=== PATIENT | male | born 1955 | race Caucasian/White ===

== ENCOUNTER 2022-01-08 12:01 | Emergency (ER) | payer MEDICAID ==
[~2022-01-08] VITALS: Ht 170.2 cm; Wt 86.2 kg
[~2022-01-08 12:01] MED LIST: ALPR1TAB2; ASPI-1406; HYDR-4005; LEVO750T46 MT; LISI40TA13; NEOM10SO12 LEFT EAR; SOMA; SULF1TAB48 MT
[2022-01-08 12:14] VITALS: BP 149/85
[2022-01-08] MEDS ORDERED: IPRATROPIUM/ALBUTEROL 0.5-3(2.5)MG/3ML NEB HHN ONE (13:00)
== END 2022-01-08 15:54 | disposition home or self-care (01) ==
LOC: ER 12:14
DX: Z20.822 Contact with and (suspected) exposure to COVID-19 (principal); E11.9 Type 2 diabetes mellitus without complications; I10 Essential (primary) hypertension
CPT/HCPCS: 71045; 87426; 94640; 99284; Z7610

== ENCOUNTER 2022-02-28 16:36 | Emergency (ER) | payer MEDICAID ==
[~2022-02-28] VITALS: Ht 172.7 cm; Wt 86.0 kg
[~2022-02-28 16:36] MED LIST changes: +CLON0.2T PO; +FURO-151 MT; +GLIP5TAB12 MT; -LEVO750T46 MT; +LIP40 PO; +LISI40TA13 MT; +LOSA100T3 PO; +METF-873 PO; +METO-539 PO; -NEOM10SO12 LEFT EAR; -SULF1TAB48 MT
[2022-02-28 16:41] VITALS: BP 150/90
== END 2022-02-28 21:30 | disposition left against medical advice (07) ==
LOC: ER 16:36
DX: Z53.21 Procedure and treatment not carried out due to patient leaving prior to being seen by health care provider (principal)
CPT/HCPCS: 93005

== ENCOUNTER 2022-03-27 19:13 | Inpatient (IN) | payer MEDICAID ==
[~2022-03-27] VITALS: Ht 170.2 cm; Wt 78.3 kg
[2022-03-27 20:17] LABS: HEMATOCRIT. 31.6 % (42.0-52.0); HEMOGLOBIN. 10.2 g/dL (14.0-18.0); MEAN CORPUSCULAR HEMOGLOBIN 26.5 pg (28.0-32.0); MEAN CORPUSCULAR VOLUME 82.1 fL (80.0-94.0); MEAN PLATELET VOLUME 7.8 fl (7.4-10.4); PLATELET 225 x1000/uL (130-400); RED BLOOD CELL COUNT 3.85 mill/uL (4.7-6.1); RED CELL DISTRIBUTION WIDTH 16.5 % (11.6-14.6)
[2022-03-27 20:29] LABS: CHLORIDE 100 mEq/L (98-107)
[2022-03-27 20:35] LABS: ETHANOL BLOOD < 10 mg/dL
[2022-03-27 21:04] LABS: PLATELET ESTIMATE NORMAL
[2022-03-27] MEDS ORDERED: ACETAMINOPHEN 325MG TABLET PO STA (22:33)
[2022-03-27] MEDS ORDERED: SODIUM CHLORIDE 0.9% 1,000 ML IV ONE (23:45)
[2022-03-28 01:59] LABS: CLARITY URINE CLOUDY (CLEAR); COLOR URINE YELLOW (YELLOW); KETONES URINE NEGATIVE (NEGATIVE); LEUKOCYTE ESTERASE URINE 3+ (NEGATIVE); NITRITE URINE POSITIVE (NEGATIVE); OCCULT BLOOD URINE 3+ (NEGATIVE); PH URINE 5.5 (4.5-8.0); PROTEIN URINE 2+ (NEGATIVE); SPECIFIC GRAVITY URINE 1.011 (1.005-1.030)
[2022-03-28 02:09] LABS: *AMPHETAMINES SCREEN URINE PRESUMTIVE POSITIVE (NEGATIVE); *BARBITURATES SCREEN URINE NEGATIVE (NEGATIVE); *BENZODIAZEPINES SCREEN URINE NEGATIVE (NEGATIVE); *COCAINE SCREEN URINE NEGATIVE (NEGATIVE); CANNABINOID URINE SCREEN NEGATIVE (NEGATIVE); METHADONE URINE SCREEN NEGATIVE (NEGATIVE); OPIATES URINE SCREEN NEGATIVE (NEGATIVE); PHENCYCLIDINE URINE SCREEN NEGATIVE (NEGATIVE)
[2022-03-28] MEDS ORDERED: CEFTRIAXONE 1 G PREMIX 50 ML IV NR (02:45)
[2022-03-28 09:28] VITALS: BP 129/84
[2022-03-28] MEDS ORDERED: ONDANSETRON HCL 4MG/2ML INJ IV PRN (10:00)
[2022-03-28] MEDS ORDERED: CLONIDINE 0.1MG TABLET PO PRN (10:00)
[2022-03-28] MEDS ORDERED: CEFTRIAXONE 1 G PREMIX 50 ML IV SCH (10:00)
[2022-03-28] MEDS ORDERED: DIPHENHYDRAMINE 50MG/ML VIAL IV PRN (10:00)
[2022-03-28] MEDS ORDERED: IPRATROPIUM/ALBUTEROL 0.5-3(2.5)MG/3ML NEB HHN PRN (10:00)
[2022-03-28] MEDS: ACETAMINOPHEN 325MG TABLET PO PRN ×2 (10:08→16:03)
[2022-03-28 12:04] VITALS: BP 134/80
[2022-03-28] MEDS ORDERED: NALOXONE HCL 0.4MG/ML VIAL IV PRN (14:00)
[2022-03-28] MEDS: MORPHINE SULFATE 2 MG/ML CPJ (NOT FOR IM USE) IV PRN (14:37)
[2022-03-28 15:47] VITALS: BP 121/96
[2022-03-28] MEDS ORDERED: VANCOMYCIN 1,750 MG in DEXT 5% WATER 250 ML IV NR (18:00)
[2022-03-28] MEDS: VANCOMYCIN 750 MG in DEXT 5% WATER 250 ML IV SCH (19:57)
[2022-03-28 20:00] VITALS: BP 140/65
[2022-03-28] MEDS: CARVEDILOL 3.125 MG TABLET PO SCH (20:01)
[2022-03-29] VITALS: BP 125/72
[2022-03-29 04:00] VITALS: BP 109/50
[2022-03-29] MEDS: CEFTRIAXONE 1,000 MG in DEXTROSE 5% WATER 50 ML IV SCH (05:46)
[2022-03-29] MEDS: VANCOMYCIN 750 MG in DEXT 5% WATER 250 ML IV SCH (05:47)
[2022-03-29 06:07] LABS: HEMATOCRIT. 30.5 % (42.0-52.0); MEAN CORPUSCULAR HEMOGLOBIN 26.7 pg (28.0-32.0); MEAN CORPUSCULAR VOLUME 81.3 fL (80.0-94.0); MEAN PLATELET VOLUME 8.3 fl (7.4-10.4); PLATELET 192 x1000/uL (130-400); RED BLOOD CELL COUNT 3.75 mill/uL (4.7-6.1); RED CELL DISTRIBUTION WIDTH 16.8 % (11.6-14.6)
[2022-03-29 07:08] LABS: CHLORIDE 96 mEq/L (98-107)
[2022-03-29 08:00] VITALS: BP 148/70
[2022-03-29] MEDS: CARVEDILOL 3.125 MG TABLET PO SCH ×2 (08:18→21:04)
[2022-03-29] MEDS: FUROSEMIDE 40MG/4ML VIAL IV SCH (08:18)
[2022-03-29 11:37] LABS: PLATELET ESTIMATE NORMAL
[2022-03-29 12:00] VITALS: BP 126/74
[2022-03-29] MEDS: ACETAMINOPHEN 325MG TABLET PO PRN (15:25)
[2022-03-29 16:00] VITALS: BP 111/68
[2022-03-29 20:00] VITALS: BP 110/72
[2022-03-30] MEDS: MORPHINE SULFATE 2 MG/ML CPJ (NOT FOR IM USE) IV PRN (00:42)
[2022-03-30] MEDS ORDERED: VANCOMYCIN 1G PREMIX 200 ML IV SCH (01:00)
[2022-03-30 04:08] VITALS: BP 108/68
[2022-03-30] MEDS: CEFTRIAXONE 1,000 MG in DEXTROSE 5% WATER 50 ML IV SCH (05:44)
[2022-03-30 08:00] VITALS: BP 125/71
[2022-03-30] MEDS: CARVEDILOL 3.125 MG TABLET PO SCH ×2 (08:32→21:15)
[2022-03-30 08:51] LABS: HEMATOCRIT. 30.7 % (42.0-52.0); MEAN CORPUSCULAR HEMOGLOBIN 26.8 pg (28.0-32.0); MEAN CORPUSCULAR VOLUME 82.1 fL (80.0-94.0); MEAN PLATELET VOLUME 8.4 fl (7.4-10.4); PLATELET 178 x1000/uL (130-400); RED BLOOD CELL COUNT 3.75 mill/uL (4.7-6.1); RED CELL DISTRIBUTION WIDTH 16.8 % (11.6-14.6)
[2022-03-30 11:43] LABS: PLATELET ESTIMATE NORMAL
[2022-03-30 12:00] VITALS: BP 104/60
[2022-03-30 16:00] VITALS: BP 99/40
[2022-03-30] MEDS: ACETAMINOPHEN 325MG TABLET PO PRN (17:52)
[2022-03-30 20:00] VITALS: BP_SYST 116; BP_SYST 154; BP_DIAS 71; BP_DIAS 77
[2022-03-31] VITALS: BP 117/79
[2022-03-31 04:00] VITALS: BP 118/78
[2022-03-31] MEDS ORDERED: DEXTROSE 50% WATER 50ML SYRINGE IV PRN (04:45)
[2022-03-31] MEDS: CEFTRIAXONE 1,000 MG in DEXTROSE 5% WATER 50 ML IV SCH (04:57)
[2022-03-31 07:33] LABS: HEMATOCRIT. 30.8 % (42.0-52.0); HEMOGLOBIN. 10.1 g/dL (14.0-18.0); MEAN CORPUSCULAR HEMOGLOBIN 26.8 pg (28.0-32.0); MEAN CORPUSCULAR VOLUME 81.7 fL (80.0-94.0); MEAN PLATELET VOLUME 8.6 fl (7.4-10.4); PLATELET 194 x1000/uL (130-400); RED BLOOD CELL COUNT 3.77 mill/uL (4.7-6.1); RED CELL DISTRIBUTION WIDTH 16.6 % (11.6-14.6)
[2022-03-31] MEDS: BLOOD SUGAR DIAGNOSTIC STRIP TEST SCH ×4 (07:40→21:01)
[2022-03-31] MEDS: FUROSEMIDE 40MG/4ML VIAL IV SCH (08:41)
[2022-03-31] MEDS: CARVEDILOL 3.125 MG TABLET PO SCH (08:42)
[2022-03-31] MEDS: INSULIN LISPRO 100 UNITS/ML SUBCUT SCH ×4 (08:43→21:05)
[2022-03-31 12:00] VITALS: BP 120/76
[2022-03-31 16:00] VITALS: BP 120/86
[2022-03-31] MEDS: CYANOCOBALAMIN 1000MCG/ML VIAL IM SCH (18:40)
[2022-03-31 20:00] VITALS: BP 129/75
[2022-03-31] MEDS: CARVEDILOL 6.25 MG TABLET PO SCH (21:06)
[2022-04-01] VITALS: BP 124/71
[2022-04-01 04:00] VITALS: BP 121/71
[2022-04-01] MEDS: CEFTRIAXONE 1,000 MG in DEXTROSE 5% WATER 50 ML IV SCH (06:05)
[2022-04-01] MEDS: BLOOD SUGAR DIAGNOSTIC STRIP TEST SCH ×4 (06:05→20:35)
[2022-04-01 06:34] LABS: BASOPHILS % 0.4 % (0.0-2.0); HEMATOCRIT. 30.2 % (42.0-52.0); HEMOGLOBIN. 9.8 g/dL (14.0-18.0); LYMPHOCYTES % 7.9 % (20.0-50.0); MEAN CORPUSCULAR HEMOGLOBIN 26.6 pg (28.0-32.0); MEAN CORPUSCULAR VOLUME 81.4 fL (80.0-94.0); MEAN PLATELET VOLUME 8.4 fl (7.4-10.4); MONOCYTES % 10.5 % (2.0-8.0); NEUTROPHILS % 80.2 % (40.0-76.0); PLATELET 239 x1000/uL (130-400); RED CELL DISTRIBUTION WIDTH 16.6 % (11.6-14.6)
[2022-04-01 08:00] VITALS: BP 122/78
[2022-04-01] MEDS: CYANOCOBALAMIN 1000MCG/ML VIAL IM SCH (08:31)
[2022-04-01] MEDS: FUROSEMIDE 40MG/4ML VIAL IV SCH (08:31)
[2022-04-01] MEDS: CARVEDILOL 6.25 MG TABLET PO SCH ×2 (08:31→20:34)
[2022-04-01] MEDS: INSULIN LISPRO 100 UNITS/ML SUBCUT SCH ×4 (08:32→20:35)
[2022-04-01 11:57] LABS: PLATELET ESTIMATE NORMAL
[2022-04-01 12:00] VITALS: BP 128/85
[2022-04-01 16:00] VITALS: BP 135/90
[2022-04-01 20:00] VITALS: BP 118/74
[2022-04-02] VITALS: BP 128/81
[2022-04-02 04:00] VITALS: BP 145/90
[2022-04-02] MEDS: CEFTRIAXONE 1,000 MG in DEXTROSE 5% WATER 50 ML IV SCH (06:01)
[2022-04-02] MEDS: BLOOD SUGAR DIAGNOSTIC STRIP TEST SCH ×4 (06:01→20:02)
[2022-04-02] MEDS: INSULIN LISPRO 100 UNITS/ML SUBCUT SCH ×4 (07:45→20:25)
[2022-04-02 08:00] VITALS: BP 137/91
[2022-04-02] MEDS: FUROSEMIDE 40MG/4ML VIAL IV SCH (09:18)
[2022-04-02] MEDS: CYANOCOBALAMIN 1000MCG/ML VIAL IM SCH (09:19)
[2022-04-02] MEDS: CARVEDILOL 6.25 MG TABLET PO SCH (09:20)
[2022-04-02 11:56] VITALS: BP 128/90
[2022-04-02] MEDS: MORPHINE SULFATE 2 MG/ML CPJ (NOT FOR IM USE) IV PRN (13:18)
[2022-04-02 16:00] VITALS: BP 124/75
[2022-04-02 20:00] VITALS: BP 157/82
[2022-04-02] MEDS: CARVEDILOL 12.5MG TABLET PO SCH (20:24)
[2022-04-03] VITALS: BP 128/82
[2022-04-03 04:00] VITALS: BP 136/88
[2022-04-03] MEDS: CEFTRIAXONE 1,000 MG in DEXTROSE 5% WATER 50 ML IV SCH (05:46)
[2022-04-03] MEDS: BLOOD SUGAR DIAGNOSTIC STRIP TEST SCH ×4 (06:42→21:38)
[2022-04-03 08:00] VITALS: BP 124/83
[2022-04-03] MEDS: INSULIN LISPRO 100 UNITS/ML SUBCUT SCH ×4 (08:28→21:42)
[2022-04-03] MEDS: CYANOCOBALAMIN 1000MCG/ML VIAL IM SCH (09:25)
[2022-04-03] MEDS: FUROSEMIDE 40MG/4ML VIAL IV SCH (09:25)
[2022-04-03] MEDS: CARVEDILOL 12.5MG TABLET PO SCH ×2 (09:26→21:38)
[2022-04-03] MEDS: LACTULOSE 20G/30ML UDC PO SCH ×3 (09:27→17:00)
[2022-04-03] MEDS ORDERED: NALOXONE HCL 0.4MG/ML VIAL IV PRN (09:30)
[2022-04-03 12:00] VITALS: BP 126/77
[2022-04-03] MEDS: GABAPENTIN 100MG CAPSULE PO SCH ×2 (14:34→21:37)
[2022-04-03 16:00] VITALS: BP 129/80
[2022-04-03 16:47] LABS: PHOSPHORUS 3.9 mg/dL (2.5-4.9)
[2022-04-03 20:00] VITALS: BP 114/73
[2022-04-04] VITALS: BP_SYST 110; BP_SYST 132; BP_DIAS 71; BP_DIAS 82
[2022-04-04 04:00] VITALS: BP 110/71
[2022-04-04 04:10] LABS: 25-HYDROXY VITAMIN D3 22 ng/mL (.)
[2022-04-04] MEDS: CEFTRIAXONE 1,000 MG in DEXTROSE 5% WATER 50 ML IV SCH (05:53)
[2022-04-04] MEDS: GABAPENTIN 100MG CAPSULE PO SCH ×3 (05:53→21:21)
[2022-04-04] MEDS: BLOOD SUGAR DIAGNOSTIC STRIP TEST SCH ×4 (05:54→21:21)
[2022-04-04] MEDS: HYDROCODONE/ACETAMINOPHEN 5/325MG TABLET PO PRN ×2 (05:54→13:32)
[2022-04-04 08:00] VITALS: BP 121/77
[2022-04-04] MEDS: FUROSEMIDE 40MG TABLET PO SCH (08:58)
[2022-04-04] MEDS: CYANOCOBALAMIN 1000MCG/ML VIAL IM SCH (08:58)
[2022-04-04] MEDS: CARVEDILOL 12.5MG TABLET PO SCH ×2 (08:58→21:21)
[2022-04-04] MEDS: INSULIN LISPRO 100 UNITS/ML SUBCUT SCH ×4 (08:59→21:22)
[2022-04-04] MEDS ORDERED: ERGOCALCIFEROL 50000UNITS CAPSULE PO SCH (11:00)
[2022-04-04 12:00] VITALS: BP 128/81
[2022-04-04 16:00] VITALS: BP 100/51
[2022-04-04 20:00] VITALS: BP 134/82
[2022-04-05] VITALS: BP 114/67
[2022-04-05 04:00] VITALS: BP 118/71
[2022-04-05] MEDS: GABAPENTIN 100MG CAPSULE PO SCH ×2 (05:57→12:57)
[2022-04-05] MEDS: CEFTRIAXONE 1,000 MG in DEXTROSE 5% WATER 50 ML IV SCH (05:57)
[2022-04-05] MEDS: HYDROCODONE/ACETAMINOPHEN 5/325MG TABLET PO PRN ×2 (06:07→17:34)
[2022-04-05] MEDS: BLOOD SUGAR DIAGNOSTIC STRIP TEST SCH ×4 (06:07→20:53)
[2022-04-05] MEDS: INSULIN LISPRO 100 UNITS/ML SUBCUT SCH ×4 (06:07→20:58)
[2022-04-05 08:00] VITALS: BP 134/83
[2022-04-05] MEDS: CYANOCOBALAMIN 1000MCG/ML VIAL IM SCH (08:37)
[2022-04-05] MEDS: FUROSEMIDE 40MG TABLET PO SCH (08:37)
[2022-04-05] MEDS: CARVEDILOL 12.5MG TABLET PO SCH ×2 (08:38→20:59)
[2022-04-05 12:00] VITALS: BP 128/75
[2022-04-05] MEDS ORDERED: GABAPENTIN 100MG CAPSULE PO NR (14:00)
[2022-04-05 16:00] VITALS: BP 120/76
[2022-04-05 20:00] VITALS: BP 113/64
[2022-04-05] MEDS: GABAPENTIN 300MG CAPSULE PO SCH (21:07)
[2022-04-06] VITALS: BP_SYST 113; BP_DIAS 68; BP_DIAS 71
[2022-04-06 04:00] VITALS: BP 128/76
[2022-04-06] MEDS: CEFTRIAXONE 1,000 MG in DEXTROSE 5% WATER 50 ML IV SCH (05:02)
[2022-04-06] MEDS: GABAPENTIN 300MG CAPSULE PO SCH ×3 (05:02→21:05)
[2022-04-06] MEDS: HYDROCODONE/ACETAMINOPHEN 5/325MG TABLET PO PRN ×2 (05:30→12:57)
[2022-04-06] MEDS: BLOOD SUGAR DIAGNOSTIC STRIP TEST SCH ×4 (06:40→20:59)
[2022-04-06] MEDS: INSULIN LISPRO 100 UNITS/ML SUBCUT SCH ×4 (07:16→21:08)
[2022-04-06 08:00] VITALS: BP 121/82
[2022-04-06] MEDS: CYANOCOBALAMIN 1000MCG/ML VIAL IM SCH (08:34)
[2022-04-06] MEDS: CARVEDILOL 12.5MG TABLET PO SCH ×2 (08:34→21:06)
[2022-04-06] MEDS: FUROSEMIDE 40MG TABLET PO SCH (08:34)
[2022-04-06 12:00] VITALS: BP 131/78
[2022-04-06 16:00] VITALS: BP 130/86
[2022-04-06] MEDS: HYDROCODONE/ACETAMINOPHEN 10/325MG TABLET PO PRN (18:10)
[2022-04-06 20:00] VITALS: BP 122/71
[2022-04-07] VITALS: BP 139/79
[2022-04-07] MEDS: HYDROCODONE/ACETAMINOPHEN 10/325MG TABLET PO PRN ×3 (00:11→23:25)
[2022-04-07 04:00] VITALS: BP 119/64
[2022-04-07] MEDS: GABAPENTIN 300MG CAPSULE PO SCH ×3 (06:04→21:01)
[2022-04-07] MEDS: CEFTRIAXONE 1,000 MG in DEXTROSE 5% WATER 50 ML IV SCH (06:04)
[2022-04-07] MEDS: BLOOD SUGAR DIAGNOSTIC STRIP TEST SCH ×4 (07:40→20:55)
[2022-04-07 08:00] VITALS: BP 118/69
[2022-04-07] MEDS: INSULIN LISPRO 100 UNITS/ML SUBCUT SCH ×4 (08:10→21:02)
[2022-04-07] MEDS: CARVEDILOL 12.5MG TABLET PO SCH ×2 (09:00→21:02)
[2022-04-07] MEDS: FUROSEMIDE 40MG TABLET PO SCH (09:00)
[2022-04-07 12:00] VITALS: BP 110/59
[2022-04-07] MEDS: LOSARTAN POTASSIUM 25 MG TABLET PO SCH (12:14)
[2022-04-07 16:00] VITALS: BP 107/70
[2022-04-07 20:00] VITALS: BP 115/60
[2022-04-08] VITALS: BP 110/64
[2022-04-08 04:00] VITALS: BP 115/64
[2022-04-08] MEDS: CEFTRIAXONE 1,000 MG in DEXTROSE 5% WATER 50 ML IV SCH (05:26)
[2022-04-08] MEDS: GABAPENTIN 300MG CAPSULE PO SCH ×3 (05:29→21:35)
[2022-04-08] MEDS: HYDROCODONE/ACETAMINOPHEN 10/325MG TABLET PO PRN ×3 (05:40→21:36)
[2022-04-08] MEDS: BLOOD SUGAR DIAGNOSTIC STRIP TEST SCH ×4 (06:46→21:37)
[2022-04-08 08:00] VITALS: BP 130/73
[2022-04-08] MEDS: INSULIN LISPRO 100 UNITS/ML SUBCUT SCH ×4 (08:10→21:36)
[2022-04-08] MEDS: LOSARTAN POTASSIUM 25 MG TABLET PO SCH (08:35)
[2022-04-08] MEDS: FUROSEMIDE 40MG TABLET PO SCH (08:35)
[2022-04-08] MEDS: CARVEDILOL 12.5MG TABLET PO SCH ×2 (08:35→21:00)
[2022-04-08 12:00] VITALS: BP 116/63
[2022-04-08 16:00] VITALS: BP 109/59
[2022-04-08 20:00] VITALS: BP 104/44
[2022-04-09] VITALS: BP 121/72
[2022-04-09 04:00] VITALS: BP 125/75
[2022-04-09] MEDS: GABAPENTIN 300MG CAPSULE PO SCH ×3 (05:26→21:48)
[2022-04-09] MEDS: HYDROCODONE/ACETAMINOPHEN 10/325MG TABLET PO PRN ×2 (05:26→13:03)
[2022-04-09] MEDS: BLOOD SUGAR DIAGNOSTIC STRIP TEST SCH ×4 (06:05→21:49)
[2022-04-09] MEDS: INSULIN LISPRO 100 UNITS/ML SUBCUT SCH ×4 (06:05→21:50)
[2022-04-09] MEDS: CEFTRIAXONE 1,000 MG in DEXTROSE 5% WATER 50 ML IV SCH (06:21)
[2022-04-09 08:00] VITALS: BP 128/74
[2022-04-09] MEDS: CARVEDILOL 12.5MG TABLET PO SCH ×2 (08:49→21:49)
[2022-04-09] MEDS: FUROSEMIDE 40MG TABLET PO SCH (08:50)
[2022-04-09] MEDS: LOSARTAN POTASSIUM 25 MG TABLET PO SCH (08:50)
[2022-04-09 12:00] VITALS: BP 99/53
[2022-04-09 16:00] VITALS: BP 109/72
[2022-04-09 20:00] VITALS: BP 118/70
[2022-04-10] VITALS: BP 107/51
[2022-04-10 04:00] VITALS: BP 116/71
[2022-04-10] MEDS: BLOOD SUGAR DIAGNOSTIC STRIP TEST SCH ×2 (06:14→12:37)
[2022-04-10] MEDS: CEFTRIAXONE 1,000 MG in DEXTROSE 5% WATER 50 ML IV SCH (06:14)
[2022-04-10] MEDS: INSULIN LISPRO 100 UNITS/ML SUBCUT SCH ×2 (06:14→13:01)
[2022-04-10] MEDS: GABAPENTIN 300MG CAPSULE PO SCH ×2 (06:14→13:01)
[2022-04-10 08:00] VITALS: BP 111/65
[2022-04-10] MEDS: LOSARTAN POTASSIUM 25 MG TABLET PO SCH (08:16)
[2022-04-10] MEDS: FUROSEMIDE 40MG TABLET PO SCH (08:16)
[2022-04-10] MEDS: CARVEDILOL 12.5MG TABLET PO SCH (08:17)
[2022-04-10] MEDS: HYDROCODONE/ACETAMINOPHEN 10/325MG TABLET PO PRN (08:25)
[2022-04-10 12:00] VITALS: BP 119/66
[2022-04-11] MEDS ORDERED: SULF1TAB48 MT (20:50)
[2022-04-13] MEDS ORDERED: CYANOCOBALAMIN 1000MCG/ML VIAL IM SCH (09:00)
== END 2022-04-10 17:45 | disposition left against medical advice (07) | DRG 720 ==
LOC: ER 19:13 → MICUSO 03-28 03:13 → 7WST 03-28 09:11
PROVIDERS: ADMIT Internal Medicine; ATTEND Internal Medicine
DX: A41.51 Sepsis due to Escherichia coli [E. coli] (principal); I50.23 Acute on chronic systolic (congestive) heart failure; N17.9 Acute kidney failure, unspecified; I42.9 Cardiomyopathy, unspecified; J18.9 Pneumonia, unspecified organism; I11.0 Hypertensive heart disease with heart failure; E11.42 Type 2 diabetes mellitus with diabetic polyneuropathy; A41.2 Sepsis due to unspecified staphylococcus; M48.061 Spinal stenosis, lumbar region without neurogenic claudication; M48.02 Spinal stenosis, cervical region; M51.36 Other intervertebral disc degeneration, lumbar region; N39.0 Urinary tract infection, site not specified; M19.90 Unspecified osteoarthritis, unspecified site; R26.9 Unspecified abnormalities of gait and mobility; M54.50 Low back pain, unspecified; E53.8 Deficiency of other specified B group vitamins; E55.9 Vitamin D deficiency, unspecified; F15.90 Other stimulant use, unspecified, uncomplicated; Z20.822 Contact with and (suspected) exposure to COVID-19; Z79.899 Other long term (current) drug therapy; Z90.49 Acquired absence of other specified parts of digestive tract; Z53.29 Procedure and treatment not carried out because of patient's decision for other reasons; Z86.16 Personal history of COVID-19; Z82.49 Family history of ischemic heart disease and other diseases of the circulatory system
CPT/HCPCS: 36415; 71045; 72141; 72146; 72148; 80048; 80053; 80202; 80305; 80320; 81003; 82306; 82607; 82746; 82962; 83605; 83735; 83880; 84100; 84145; 84443; 84484; 85025; 87077; 87186; 87426; 93005; 93306; 93970; 97110; 97116; 97162; 97166; 97530; 97535; 99285; C9803; J0696; J1200; J1815; J1940; J2270; J3370; J3420; J7060; G0480

== ENCOUNTER 2022-04-11 13:39 | Emergency (ER) | payer MEDICAID ==
[~2022-04-11] VITALS: Ht 170.2 cm; Wt 90.0 kg
[2022-04-11] MEDS ORDERED: ASPIRIN 325MG TABLET PO ONE (15:15)
[2022-04-11 15:50] LABS: CLARITY URINE CLEAR (CLEAR); COLOR URINE YELLOW (YELLOW); KETONES URINE TRACE (NEGATIVE); LEUKOCYTE ESTERASE URINE TRACE (NEGATIVE); NITRITE URINE NEGATIVE (NEGATIVE); OCCULT BLOOD URINE NEGATIVE (NEGATIVE); PROTEIN URINE TRACE (NEGATIVE)
[2022-04-11 16:00] LABS: BASOPHILS % 0.6 % (0.0-2.0); EOSINOPHILS % 2.5 % (0.0-5.0); HEMATOCRIT. 34.2 % (42.0-52.0); HEMOGLOBIN. 11.2 g/dL (14.0-18.0); LYMPHOCYTES % 10.3 % (20.0-50.0); MEAN CORPUSCULAR HEMOGLOBIN 26.9 pg (28.0-32.0); MEAN CORPUSCULAR VOLUME 82.2 fL (80.0-94.0); MEAN PLATELET VOLUME 7.7 fl (7.4-10.4); MONOCYTES % 6.4 % (2.0-8.0); NEUTROPHILS % 80.2 % (40.0-76.0); PLATELET 374 x1000/uL (130-400); RED BLOOD CELL COUNT 4.16 mill/uL (4.7-6.1); RED CELL DISTRIBUTION WIDTH 16.9 % (11.6-14.6)
[2022-04-11 17:57] LABS: CHLORIDE 96 mEq/L (98-107)
[2022-04-11] MEDS ORDERED: SULF1TAB48 MT (20:50)
[2022-04-11 21:00] VITALS: BP 133/85
== END 2022-04-11 21:16 | disposition home or self-care (01) ==
LOC: ER 13:56
DX: R07.89 Other chest pain (principal); I11.0 Hypertensive heart disease with heart failure; I50.9 Heart failure, unspecified; E11.9 Type 2 diabetes mellitus without complications; Z79.899 Other long term (current) drug therapy; M79.604 Pain in right leg
CPT/HCPCS: 36415; 71045; 80053; 81003; 83605; 83880; 84484; 85025; 93005; 93971; 99285